=== PATIENT | female | born 1985 | race Hispanic/Latino ===

== ENCOUNTER 2022-03-01 02:11 | Emergency (ER) | payer SELFPAY ==
[~2022-03-01] VITALS: Ht 160 cm; Wt 89.8 kg
[2022-03-01 03:00] LABS: APPEARANCE,URINE Clear (CLEAR); BILIRUBIN,URINE Negative (NEGATIVE); COLOR,URINE Yellow (YELLOW); GLUCOSE, URINE (UA) Negative (NEGATIVE); KETONES,URINE Negative (NEGATIVE); LEUKOCYTE ESTERASE ,URINE Negative (NEGATIVE); NITRATE,URINE Negative (NEGATIVE); OCCULT BLOOD,URINE Negative (NEGATIVE); PROTEIN,URINE Negative (NEGATIVE)
[2022-03-01 03:07] LABS: BASOPHILS % (AUTO) 0.6 % (0.0-5.0); EOSINOPHILS % (AUTO) 2.8 % (0.0-8.0); HEMATOCRIT 42.4 % (36-48); LYMPHOCYTES % (AUTO) 28.8 % (21.0-51.0); MEAN CORPUSCULAR HEMOGLOBIN 29.1 pg (27.0-33.0); MEAN CORPUSCULAR HGB CONC 34.2 g/dL (32.0-36.0); MEAN CORPUSCULAR VOLUME 85.1 fL (79-99); MONOCYTES % (AUTO) 6.7 % (3.0-13.0); NEUTROPHILS % (AUTO) 60.9 % (40.0-77.0); PLATELET COUNT (AUTO) 218 K/uL (130-400); RED BLOOD CELL COUNT(AUTO) 4.98 MIL/uL (4.00-5.50); RED CELL DISTRIBUTION WIDTH 12.6 % (11.0-15.5); WHITE BLOOD COUNT (AUTO) 8.3 K/uL (4.8-10.8)
[2022-03-01 03:12] LABS: CREATININE 0.8 mg/dL (0.5-1.5); POTASSIUM 3.6 mmol/L (3.5-5.1)
[2022-03-01 03:16] LABS: ALBUMIN 3.9 g/dL (3.5-5.0); BILIRUBIN,TOTAL 0.3 mg/dL (0.2-1.0); TOTAL PROTEIN, SERUM 7.7 g/dL (6.0-8.3)
[2022-03-01] MEDS ORDERED: IBUP-2070 PO (05:43)
[2022-03-01] MEDS ORDERED: KETOROLAC 30MG VIAL (30MG/ML) IVP ONE (06:00)
[2022-03-01 06:19] VITALS: BP 123/86
== END 2022-03-01 06:31 | disposition home or self-care (01) ==
LOC: EDH 02:11
DX: R10.30 Lower abdominal pain, unspecified (principal); Z79.1 Long term (current) use of non-steroidal anti-inflammatories (NSAID)
CPT/HCPCS: 36415; 80053; 81003; 81025; 85025; 96374; 99283; J1885

== ENCOUNTER 2022-05-03 03:00 | Emergency (ER) | payer OTHER ==
[~2022-05-03] VITALS: Ht 157.5 cm; Wt 87.5 kg
[~2022-05-03 03:00] MED LIST: IBUP-2070 PO
[2022-05-03 03:32] LABS: BASOPHILS % (AUTO) 0.5 % (0.0-5.0); HEMATOCRIT 36.3 % (36-48); LYMPHOCYTES % (AUTO) 29.1 % (21.0-51.0); MEAN CORPUSCULAR HEMOGLOBIN 29.4 pg (27.0-33.0); MEAN CORPUSCULAR HGB CONC 34.7 g/dL (32.0-36.0); MEAN CORPUSCULAR VOLUME 84.8 fL (79-99); MONOCYTES % (AUTO) 8.2 % (3.0-13.0); NEUTROPHILS % (AUTO) 58.8 % (40.0-77.0); PLATELET COUNT (AUTO) 210 K/uL (130-400); RED BLOOD CELL COUNT(AUTO) 4.28 MIL/uL (4.00-5.50); RED CELL DISTRIBUTION WIDTH 12.6 % (11.0-15.5); WHITE BLOOD COUNT (AUTO) 8.4 K/uL (4.8-10.8)
[2022-05-03 03:34] LABS: APPEARANCE,URINE CLEAR (CLEAR); BILIRUBIN,URINE NEGATIVE (NEGATIVE); COLOR,URINE YELLOW (YELLOW); GLUCOSE, URINE (UA) NEGATIVE (NEGATIVE); KETONES,URINE NEGATIVE (NEGATIVE); LEUKOCYTE ESTERASE ,URINE NEGATIVE (NEGATIVE); NITRATE,URINE NEGATIVE (NEGATIVE); OCCULT BLOOD,URINE MODERATE (NEGATIVE); PROTEIN,URINE NEGATIVE (NEGATIVE); UROBILINOGEN,URINE 0.2 mg/dL (0.2-1.0)
[2022-05-03 03:37] LABS: HCG,QUALITATIVE URINE NEGATIVE (NEGATIVE)
[2022-05-03 03:42] LABS: BACTERIA,URINE Few /HPF (None Seen); CREATININE 0.9 mg/dL (0.5-1.5); POTASSIUM 3.6 mmol/L (3.5-5.1); WBC,URINE 0-1 /HPF (0-1)
[2022-05-03 03:43] LABS: SQUAMOUS EPITHELIAL CELL,UR Moderate /HPF (0-2)
[2022-05-03 03:47] LABS: ALBUMIN 3.6 g/dL (3.5-5.0); TOTAL PROTEIN, SERUM 6.7 g/dL (6.0-8.3)
[2022-05-03] MEDS ORDERED: IBUP-2070 PO (03:59)
[2022-05-03 04:00] VITALS: BP 116/75
[2022-05-03] MEDS ORDERED: KETOROLAC 15MG/ML VIAL (15MG/ML) IV ONE (04:00)
== END 2022-05-03 04:20 | disposition home or self-care (01) ==
LOC: EDH 03:00
DX: M94.0 Chondrocostal junction syndrome [Tietze] (principal); Z79.1 Long term (current) use of non-steroidal anti-inflammatories (NSAID)
CPT/HCPCS: 99284; 96374; 84484; 80053; 81001; 85025; 81025; 36415; 93005; J1885

== ENCOUNTER 2022-11-23 00:43 | Emergency (ER) | payer OTHER ==
[~2022-11-23] VITALS: Ht 149.9 cm; Wt 93.4 kg
[2022-11-23 01:14] LABS: BASOPHILS % (AUTO) 0.2 % (0.0-5.0); EOSINOPHILS % (AUTO) 2.3 % (0.0-8.0); HEMATOCRIT 38.6 % (36-48); LYMPHOCYTES % (AUTO) 26.9 % (21.0-51.0); MEAN CORPUSCULAR HEMOGLOBIN 29.8 pg (27.0-33.0); MEAN CORPUSCULAR HGB CONC 34.5 g/dL (32.0-36.0); MEAN CORPUSCULAR VOLUME 86.4 fL (79-99); MONOCYTES % (AUTO) 7.1 % (3.0-13.0); NEUTROPHILS % (AUTO) 63.3 % (40.0-77.0); PLATELET COUNT (AUTO) 217 K/uL (130-400); RED BLOOD CELL COUNT(AUTO) 4.47 MIL/uL (4.00-5.50); RED CELL DISTRIBUTION WIDTH 12.4 % (11.0-15.5); WHITE BLOOD COUNT (AUTO) 8.7 K/uL (4.8-10.8)
[2022-11-23 01:18] LABS: APPEARANCE,URINE CLEAR (CLEAR); BILIRUBIN,URINE NEGATIVE (NEGATIVE); COLOR,URINE COLORLESS (YELLOW); GLUCOSE, URINE (UA) NEGATIVE (NEGATIVE); KETONES,URINE NEGATIVE (NEGATIVE); LEUKOCYTE ESTERASE ,URINE 25 Leu/uL (NEGATIVE); NITRATE,URINE NEGATIVE (NEGATIVE); OCCULT BLOOD,URINE NEGATIVE (NEGATIVE); PH,URINE 6.5 (5.0-8.0); PROTEIN,URINE NEGATIVE (NEGATIVE); UROBILINOGEN,URINE 0.2 mg/dL (0.2-1.0)
[2022-11-23 01:24] LABS: CREATININE 0.9 mg/dL (0.5-1.5); POTASSIUM 3.8 mmol/L (3.5-5.1)
[2022-11-23 01:29] LABS: ALBUMIN 3.8 g/dL (3.5-5.0); TOTAL PROTEIN, SERUM 7.1 g/dL (6.0-8.3)
[2022-11-23 01:40] LABS: BACTERIA,URINE RARE /HPF (None Seen); RBC,URINE 0-1 /HPF (0-1); SQUAMOUS EPITHELIAL CELL,UR FEW /HPF (0-2)
[2022-11-23 01:49] LABS: HCG,QUALITATIVE URINE NEGATIVE (NEGATIVE)
[2022-11-23] MEDS ORDERED: SOLU-MEDROL 125MG VIAL IM ONE (02:30)
[2022-11-23 04:04] VITALS: BP 108/69
[2022-11-23] MEDS ORDERED: METH4TAB3 PO (04:19)
== END 2022-11-23 04:27 | disposition home or self-care (01) ==
LOC: EDH 00:43
DX: M94.0 Chondrocostal junction syndrome [Tietze] (principal); M54.2 Cervicalgia
CPT/HCPCS: 36415; 71045; 80053; 81001; 81025; 84484; 85025; 93005; 96372

== ENCOUNTER 2025-06-02 23:53 | Emergency (ER) | payer SELFPAY ==
[~2025-06-02] VITALS: Ht 160 cm; Wt 89.8 kg
[~2025-06-02 23:53] MED LIST changes: +IBUP-1492 PO; -IBUP-2070 PO; +METH4TAB3 PO
--- NOTE | 2025-06-02 23:57 | NUR ---
UA CUP PROVIDED
--- NOTE | 2025-06-03 00:23 | ERN ---
General Chief Complaint: Chest Pain Stated Complaint: CHEST PAIN RADIATING BACK Time Seen by MD: 23:55 History of Present Illness Initial Comments Patient 40-year-old female with pain in her left neck along the trapezius muscle and on her left pectoralis major muscle and shoulder blade. It started today. Allergies: Coded Allergies: No Known Allergies (Unverified Allergy, Unknown, 03/01/22) Home Meds Active Scripts Methylprednisolone (Medrol) 4 Mg Tab.ds.pk, 4 MG PO AD for 6 Days, #1 PACK Prov:MAXIMINO GALLARDO MD 11/23/22 Ibuprofen (Ibuprofen) 600 Mg Tablet, 600 MG PO Q6H PRN for PAIN, #30 TAB Prov:FLORES LI MD 05/03/22 Ibuprofen (Ibuprofen) 600 Mg Tablet, 600 MG PO Q6H PRN for PAIN, #30 TAB 0 Refills Prov:MILLI FONSECA MD 03/01/22 Past Medical History Past Medical History: No Pertinent History Past Surgical History: None Social History Social History: Negative, Lives with family Female( History) History: Not Applicable LMP: May 31, 2025 ROS Dictation Review of systems otherwise negative. No fevers or chills. No chest pain no shortness of breath. No difficulty urinating no change in defecation habits. Physical Exam General Appearance: (+) no apparent distress Orientation: (+) alert, (+) oriented x 3 Head/Face Trauma: No Eye: bilateral eye normal inspection, bilateral eye PERRL, bilateral eye EOMI Ear, Nose, Throat: (+) hearing grossly normal, (+) normal ENT inspection, (+) moist mucous membraine Neck: (+) normal inspection, (+) supple, (+) full range of motion Respiratory: (+) chest non-tender, (+) lungs clear, (+) well ventilated Heart: (+) regular, (+) no gallop Vascular: (+) no edema, (+) normal peripheral pulse Gastrointestinal: (+) soft, (+) non-tender, (+) bowel sound present Results Laboratory and Microbiology Lab and Micro Result Laboratory Tests Test 06/03/25 00:13 White Blood Count 7.5 K/uL (4.8-10.8) Red Blood Count 4.23 MIL/uL (4.00-5.50) Hemoglobin 12.5 g/dL (12.0-16.0) Hematocrit 36.3 % (36-48) Mean Corpuscular Volume 85.8 fL (79-99) Mean Corpuscular Hemoglobin 29.6 pg (27.0-33.0) Mean Corpuscular Hemoglobin Concent 34.4 g/dL (32.0-36.0) Red Cell Distribution Width 13.0 % (11.0-15.5) Platelet Count 232 K/uL (130-400) Mean Platelet Volume 12.6 fL (7.5-10.5) H Immature Granulocyte % (Auto) 0.3 % (0-1) Neutrophils (%) (Auto) 59.8 % (40.0-77.0) Lymphocytes (%) (Auto) 29.7 % (21.0-51.0) Monocytes (%) (Auto) 7.6 % (3.0-13.0) Eosinophils (%) (Auto) 2.1 % (0.0-8.0) Basophils (%) (Auto) 0.5 % (0.0-5.0) Neutrophils # (Auto) 4.5 K/uL (1.8-7.7) Lymphocytes # (Auto) 2.2 K/uL (1.0-4.8) Monocytes # (Auto) 0.6 K/uL (0.1-1.0) Eosinophils # (Auto) 0.16 K/uL (0.00-0.70) Basophils # (Auto) 0.04 K/uL (0.00-0.20) Absolute Immature Granulocyte (auto 0.02 K/uL (0-1) Nucleated Red Blood Cells 0.0 % (0.0-0.19) Sodium Level 139 mmol/L (136-145) Potassium Level 3.6 mmol/L (3.5-5.1) Chloride Level 103 mmol/L (101-111) Carbon Dioxide Level 28 mmol/L (21-32) Blood Urea Nitrogen 23 mg/dL (7-18) H Creatinine 0.8 mg/dL (0.5-1.0) Glomerular Filtration Rate Calc 97 mL/min (>90) Random Glucose 106 mg/dL (70-105) H Total Calcium 8.5 mg/dL (8.5-10.1) Total Creatine Kinase 70 U/L (21-232) Troponin I High Sensitivity < 4 ng/L (4-50) L MDM MDM: Differential diagnosis: Doubt acute ME, dehydration, muscle strain, electrolyte imbalance, Rationale: Tests considered and ordered secondary to shared decision making include: Previous outside records reviewed: Old ER visits. Risk of complication and/or morbidity or mortality of patient management: None Medications-Per medication reconciliation Need for hospitalization: Patient does meet criteria for hospitalization. Need for emergency major/minor surgery: No There are no social concerns with this patient. Prescription drug management Prescriptions will include symptomatic care Patient's prior external medical records from other ER visits were reviewed by me as indicated. Prior testing and results from previous visits were reviewed. Prior tests were taken into account with medical decision making and resource utilization, independent historian/historians were used to obtain complete medical history. I independently interpreted the test that were performed, results were reviewed by me and considered findings on radiology if ordered. Patient's laboratory analysis shows a normal CBC. Chemistry panel shows elevation of her BUN. Cardiac enzymes are negative. Patient feels much better after receiving a L of fluid. We still do not have a urine analysis but I am confident that the patient's symptoms were driven by dehydration or muscle spasm. ED Course Orders Procedure Category Date Status Time Vital Signs Per CPOE 06/02/25 Transmitted Routine 23:56 Chest 1vw RAD 06/02/25 Resulted 23:56 12 Lead Ekg Tracing- EKG 06/02/25 Logged Technical 23:56 Oxygen By Nc/Pulse Ox CPOE 06/02/25 Transmitted 23:56 Maintain Iv CPOE 06/02/25 Transmitted 23:56 Iv Insertion CPOE 06/02/25 Transmitted 23:56 Cardiac Monitoring CPOE 06/02/25 Transmitted 23:56 Pulse Oximetry With CPOE 06/02/25 Transmitted Vs And Prn 23:56 Cbc With Differential LAB 06/02/25 Complete 23:56 Activity: Br W/Brp CPOE 06/02/25 Transmitted With Assist 23:56 Creatine Kinase, Total LAB 06/02/25 Complete 23:56 Troponin I High LAB 06/02/25 Complete Sensitivity 23:56 Urinalysis Profile LAB 06/02/25 Logged 23:56 Basic Metabolic Panel LAB 06/02/25 Complete 23:56 Orphenadrine Citrate PHA 06/03/25 Complete (Norflex) 00:30 Lactated Ringers PHA 06/03/25 Complete 1000ml (Lactated 00:18 Ketorolac PHA 06/03/25 Complete Tromethamine 30mg/Ml 00:30 Triamcinolone Acet PHA 06/03/25 Complete 40mg/Ml 1ml (Kenalog 00:30 Current Medications Medications (Trade) Dose Ordered Sig/Anuel Route PRN Reason Start Time Stop Time Status Last Admin Dose Admin Ketorolac Tromethamine (toRADol) 30 mg ONCE ONCE IVP 06/03/25 00:30 06/03/25 00:31 DC 06/03/25 00:41 Lactated Ringer's (Lactated Ringers 1000ml) 1,000 ml BOLUS STAT IV 06/03/25 00:18 06/03/25 00:28 DC 06/03/25 00:40 Orphenadrine Citrate (Norflex) 60 mg ONCE ONCE IVP 06/03/25 00:30 06/03/25 00:31 DC 06/03/25 00:41 Triamcinolone Acetonide (Kenalog 40) 40 mg ONCE ONCE IM 06/03/25 00:30 06/03/25 00:31 DC 06/03/25 01:44 Vital Signs Date Time Temp Pulse Resp B/P (MAP) Pulse Ox O2 Delivery O2 Flow Rate FiO2 06/03/25 00:18 97.7 64 16 143/98 98 Room Air* 0 21 06/02/25 23:55 97.7 64 16 143/98 98 Room Air DX & DISP Disposition: Discharge Departure Impression: Primary Impression: Chest wall pain Additional Impression: Dehydration Condition: Stable Additional Instructions: I think your pain was driven by muscle spasm or aches and possibly from dehydration. You do have a slight elevation in a waste product that your kidneys normally clear suggesting dehydration. You started to feel better with fluids as well. Please follow-up with her primary care physician in a couple of weeks to make sure that your kidneys have returned to normal function. Please drink water every day to the point that your urine runs clear at least once a day. Referrals: KELVIN COLORADO (PCP) SHEYLA BOOKER MD Jun 03, 2025 00:23
[2025-06-03 00:33] LABS: IMMATURE GRANULOCYTE ABSOLUTE 0.02 K/uL (0-1); NUCLEATED RED BLOOD CELLS 0.0 % (0.0-0.19); PLATELET COUNT (AUTO) 232 K/uL (130-400); RED BLOOD CELL COUNT(AUTO) 4.23 MIL/uL (4.00-5.50); RED CELL DISTRIBUTION WIDTH 13.0 % (11.0-15.5); WHITE BLOOD COUNT (AUTO) 7.5 K/uL (4.8-10.8)
[2025-06-03] MEDS: LACTATED RINGERS 1000ML IV STA (00:40)
[2025-06-03] MEDS: ORPHENADRINE 60MG/2ML IVP ONE (00:41)
[2025-06-03 00:42] LABS: CREATININE 0.8 mg/dL (0.5-1.0); GLOMERULAR FILTR. RATE CALC 97.0 mL/min (>90); GLUCOSE,RANDOM 106.0 mg/dL (70-105); SODIUM SERUM 139.0 mmol/L (136-145); UREA NITROGEN, BLOOD 23.0 mg/dL (7-18)
[2025-06-03 00:46] LABS: CREATINE KINASE, TOTAL 70.0 U/L (21-232)
[2025-06-03] MEDS: TRIAMCINOLONE ACETONIDE 40 MG/ML 1ML VIAL IM ONE (01:44)
--- NOTE | 2025-06-03 01:47 | HMCIMG ---
EXAM: CR Chest, 1 view CLINICAL HISTORY: Chest pain. COMPARISON: Chest radiograph dated 11/23/2022. FINDINGS: The lungs show no infiltrates or other acute findings. No pleural effusion or pneumothorax. The cardiomediastinal silhouette is within normal limits. No acute osseous abnormality. IMPRESSION: No acute cardiopulmonary process is evident. Compared to the prior study, there is no significant interval change. /[place]
[2025-06-03 02:15] VITALS: BP 138/84; PULSE 62; RESP 17; TEMP 97.5; O2SAT 98
--- NOTE | 2025-06-03 06:42 | EKG ---
[facility] Test Date: 2025-06-03 Test Time: 00:01:39 Pat Name: SHYLA ROGERS Department: ED Room: Gender: F Client Application Support Specialist: [id number] : 1985 Requested By: SHEYLA BOOKER Order Number: [id number] Reading MD: Carmelina Caro Measurements Intervals [place] Rate: 66 P: 31 ID: [id number] QRS: 29 QRSD: 90 T: 23 QT: 384 QTc: 403 Interpretive Statements Sinus rhythm Low voltage, precordial leads Compared to ECG 11/23/2022 01:03:11 Low QRS voltage now present Myocardial infarct finding no longer present Electronically Signed On 06-05-2025 12:39:33 CDT by Carmelina Caro Please click the below link to view image of tracing.
== END 2025-06-03 02:27 | disposition home or self-care (01) ==
LOC: EDH 23:53
DX: E86.0 Dehydration (principal); M54.2 Cervicalgia; Z79.899 Other long term (current) drug therapy
CPT/HCPCS: 99285; 71045; 82550; 84484; 80048; 85025; 36415; 93005; 96374; 96361; 96375; 96372; J1885; J7120; J3301; J2360